=== PATIENT | female | born 1950 | race Caucasian/White ===

== ENCOUNTER 2018-12-10 09:25 | Outpatient (CLI) | payer MEDICARE, OTHER ==
--- NOTE | 2018-12-14 18:00 | OP Clinic Progress Note ---
DATE OF VISIT: 12/10/2018 SUBJECTIVE: Jefferson Chowdhury is a 68-year-old female who presented to the clinic today for a loose and painful left great toenail. She has a history of a loose toenail that removed itself by getting caught in socks at one point. She has been unable to get the nail to stay tight on her nail ever since and has pain around this toenail on the proximal edge. The patient would like to have the toenail removed permanently at this time in order to be safe and prevent further problems and to take away the pain she was having currently. She does not admit to any fevers, chills, nausea, vomiting, shortness of breath or chest pain at this time. She does not admit to any allergies at this time. The patient is here for follow-up from a visit we had earlier this week and the patient is here overall as a referral from Dr. Claudio Esposito in [place]. OBJECTIVE: Vitals: Temperature 97.3 degrees Fahrenheit, heart rate 82, respiration rate 16, blood pressure low at 95/49. We called and left a message for instructions to monitor her blood pressure and to follow up with her primary care physician for hypotension, especially if there are any signs or symptoms of dizziness, headaches or anything else of that nature that was discussed over the phone. O2 saturation 97% on room air. Vascular: 2+ DP and PT pulses, left foot. Capillary refill time is less than 3 seconds to the toes of the left foot. There is no real edema noted, left foot. Dermatologic: Left hallux toenail is thick, discolored and very loose. It is connected at the very proximal end but there is no erythema, drainage or skin abnormalities or lesions noted. Musculoskeletal: There is a palpable prominence on the proximal lateral aspect of the left great toenail. This is painful to the touch. There were no other gross abnormalities noted. There is no other pain on palpation noted, either. Neurologic: Light touch sensation is intact to the toes, left foot. ASSESSMENT AND PLAN: 1. Onychocryptosis, left hallux. 2. Onycholysis, left hallux. Consent was discussed with the patient including but not limited to risks and benefits of bleeding, and infection. The patient understood these and signed consent for a left hallux total nail avulsion with chemical matrixectomy. PROCEDURE #1: Total nail avulsion of the left hallux with chemical matrixectomy was performed. An alcohol swab was utilized to cleanse the base of the left great toe. 5 mL of a 1:1 mix of 2% lidocaine plain and 0.5% Marcaine plain were injected into the base of the toe. At this time the toenail was loosened from its edges and avulsed with a hemostat. The nail bed underneath was clean and free of any concern or lacerations. The site was rinsed with a copious amount of normal saline. It should be noted that the toe was exsanguinated and tourniquet applied. The patient then had triple antibiotic ointment placed around the edges of the wound base to protect it from the phenol. Phenol was then applied in intervals of 45 seconds, 45 seconds, 30 seconds and a final fourth application for 30 seconds. The tourniquet was removed and a prompt hyperemic response was noted to the left great toe. The left great toe and all the surrounding toes were rinsed with 70% isopropyl alcohol to dilute out the acid. The patient had very limited bleeding and hemostasis was obtained with pressure. Normal saline was then utilized in a copious amount to rinse out the site and it was dried and dressings were applied consisting of Silvadene, 4x4 gauze, 2-inch Lisbeth and 1- inch Coban beginning on the great toe and extending onto the distal forefoot to help hold it on. The patient had postprocedure instructions given and discussed with her. The patient is to call me with any concerns or signs of infection that were discussed today. Return to the clinic in 1 week for follow-up and then we will plan on likely 2 weeks after that. The patient has no further questions and we will see her next week. It should be noted that we called and left a message as mentioned above regarding the low blood pressure and to follow up with her primary care doctor for the low blood pressure, especially if there are any concerns or symptoms. Of note, the patient had the toe exsanguinated and a toe tourniquet applied prior to beginning the procedure. The patient also had a Betadine prep applied to cleanse the left great toenail and surrounding skin areas. The patient also had antibiotic ointment placed around the skin edges of the wound in order to protect it when applying the phenol. She also had a protective sheet laid over her legs to protect her. Yovany Keys D.P.M. (Dictated/Not Signed) Jeffrey Job#: [id number] & [id number] Cc: Claudio Esposito D.O. [facility]
== END 2018-12-10 09:55 ==
LOC: POD 09:25
PROVIDERS: ATTEND Podiatrist Foot & Ankle Surgery
DX: L60.0 Ingrowing nail (principal); L60.1 Onycholysis
CPT/HCPCS: 11730; 11750; 99213; G0463; A4554

== ENCOUNTER 2018-12-17 13:55 | Outpatient (CLI) | payer MEDICARE, OTHER ==
--- NOTE | 2018-12-21 15:09 | OP Clinic Progress Note ---
DATE OF VISIT: 12/17/2018 SUBJECTIVE: Jefferson Chowdhury is a 68-year-old female presenting to clinic today for her first follow-up of a left total nail avulsion with chemical matrixectomy of the left great toenail. The patient states she is doing great and is not having any pain. She does not admit to any fevers, chills, nausea, vomiting, shortness of breath or chest pain. OBJECTIVE: Vitals: Temperature 98.7 degrees Fahrenheit, heart rate 90, respiration rate 18, blood pressure 149/92. O2 saturation is 95% on room air. Vascular: 2+ DP and PT pulses, left foot. Capillary refill time is less than 3 seconds to the toes of the left foot. There is no edema noted, left foot. Dermatologic: The left great toenail bed where the procedure was performed has pink raw tissue but it is healing very well and appropriately for 1 week post procedure. There is no erythema around the nail bed area, nor any abnormal drainage or malodor noted. There is no warmth noted. Musculoskeletal: There is no pain on palpation noted around the outside of the nail bed area. There is no fluctuance or concerning areas, left great toe. There were no other gross abnormalities noted, left foot. Neurologic: Light touch sensation is intact to the toes, left foot. ASSESSMENT AND PLAN: 1. Postprocedure care. 2. Onychocryptosis, left hallux, follow-up. The patient is healing beautifully and she was encouraged to just apply antibiotic ointment and a Band-Aid every other day and the opposite days just do a Band-Aid for the next week and then for the week afterward to do just a plain Band-Aid and increase some time open to air at that time. The patient understands this and has no further questions or concerns or complaints and is very happy with the procedure and how she is feeling so far. She knows she is to report to me, or to an ER or urgent care immediately if there are any signs of infection that begin. Return to the clinic in 2 weeks for hopefully final follow-up and clearance from being healed from the procedure. Karl Minor.P.M. (Dictated/Not Signed) Jeffrey Job#: [id number]
== END 2018-12-17 14:25 ==
LOC: POD 13:55
PROVIDERS: ATTEND Podiatrist Foot & Ankle Surgery
DX: Z48.817 Encounter for surgical aftercare following surgery on the skin and subcutaneous tissue (principal); L60.0 Ingrowing nail
CPT/HCPCS: 99213; G0463